=== PATIENT | female | born 1965 | race African-American/Black ===

== ENCOUNTER 2017-02-09 21:41 | Emergency (ER) | payer BC ==
[~2017-02-09] VITALS: Ht 160 cm; Wt 93.0 kg
[~2017-02-09 21:41] MED LIST: CIPROFLOXACN500 MG PO; FERREX 150150 MG PO; FOLIC ACID1 MG PO; GABAPENTIN100 MG PO; HYZAAR1 TA1 PO; LORTAB 7.5-3251 TAB PO; METFORMIN500 MG PO; ONDANSETRON4 MG PO; PRILOSEC40 MG PO
[2017-02-10 00:02] LABS: HEMATOCRIT 38.9 % (37.0-47.0); HEMOGLOBIN 12.5 g/dl (12.0-16.0); IMMATURE GRANULOCYTES 0.3 % (0.0-1.0); MEAN CELL VOLUME 88.4 fL CALC (80.0-100.0); MEAN CORPUSCULAR HGB 28.4 pG CALC (26.0-32.0); MEAN CORPUSCULAR HGB CONC 32.1 g/L CALC (32.0-36.0); NEUT# 3.73 thou/uL (2.00-7.15); RED BLOOD COUNT 4.4 mill/uL (4.20-5.60); RED CELL DISTRI WIDTH 14.5 % (11.5-15.5)
[2017-02-10 00:05] LABS: URINE BILIRUBIN - DIPSTICK NEGATIVE (NEGATIVE); URINE BLOOD DIPSTICK NEGATIVE (NEGATIVE); URINE CLARITY SLIGHT CLOUDY; URINE COLOR YELLOW; URINE GLUCOSE - DIPSTICK NEGATIVE (NEGATIVE); URINE KETONE TRACE mg/dL (NEGATIVE); URINE LEUK ESTERASE NEGATIVE (NEGATIVE); URINE PROTEIN - DIPSTICK NEGATIVE (NEG-TRACE)
[2017-02-10 00:08] LABS: URINE NITRITE - DIPSTICK POSITIVE (Negative)
[2017-02-10 00:13] LABS: URINE BACTERIA MANY hpf; URINE RBC 0-2 RBC/hpf (0-5); URINE SQUAMOUS EPITHELIAL CELL RARE EPI/hpf (0-FEW)
[2017-02-10 00:25] LABS: ALBUMIN 4.5 g/dL (3.2-5.0); ALKALINE PHOSPHATASE 126 u/l (38-126); AMYLASE 100 u/l (30-110); ANION GAP 14 (6-22 (CALC)); BILIRUBIN, TOTAL 0.7 mg/dL (0.0-1.4); BUN 8 mg/dL (7-17); BUN/CREATININE RATIO 10 (12-20 (CALC)); CALCIUM 9.2 mg/dL (8.4-10.2); CARBON DIOXIDE 25 mmol/l (22-30); CHLORIDE 101 mmol/l (95-108); CREATININE 0.8 mg/dL (0.5-1.0); GFR > 60 ML/MIN (>=60 (CALC)); GFR FOR AFR.AMER. > 60 ML/MIN (>=60 (CALC)); GLUCOSE 151 mg/dL (65-105); LIPASE 99 u/l (23-300); SGOT/AST 44 u/l (14-36); SGPT/ALT 30 u/l (9-52); SODIUM 137 mmol/l (137-146); TOTAL PROTEIN 8.1 g/dL (6.3-8.2)
[2017-02-10] MEDS ORDERED: CIPROFLOXACN500 MG PO (01:18)
[2017-02-10] MEDS ORDERED: ULTRAM50 MG PO (01:18)
[2017-02-10 02:21] VITALS: BP 125/70
== END 2017-02-10 02:15 | disposition home or self-care (01) | DRG 392 ==
LOC: ED 21:41
PROVIDERS: Emergency Medicine
DX: R10.32 Left lower quadrant pain (principal); N39.0 Urinary tract infection, site not specified; N83.201 Unspecified ovarian cyst, right side; B96.20 Unspecified Escherichia coli [E. coli] as the cause of diseases classified elsewhere
CPT/HCPCS: Q9967

== ENCOUNTER 2021-12-24 09:22 | Day surgery (SDC) | payer BC ==
[~2021-12-24] VITALS: Ht 160 cm; Wt 85.7 kg
[~2021-12-24 09:22] MED LIST changes: +ATORVASTATIN CA1 POW PO; +JARDIANCE25 MG PO; +OMEPRAZOLE DR40 MG PO; +ULTRAM50 MG PO; +ZESTRIL10 M1 PO
[2021-12-24 12:53] VITALS: BP 189/100
== END 2021-12-24 13:08 | disposition home or self-care (01) | DRG 951 ==
LOC: ENDO 09:22
PROVIDERS: ATTEND Surgery
PROC: 0DJD8ZZ Inspection of Lower Intestinal Tract, Via Natural or Artificial Opening Endoscopic (ICD-10-PCS; principal; 2021-12-24)
DX: Z12.11 Encounter for screening for malignant neoplasm of colon (principal); K57.30 Diverticulosis of large intestine without perforation or abscess without bleeding; K64.8 Other hemorrhoids; K64.4 Residual hemorrhoidal skin tags; I10 Essential (primary) hypertension; E11.9 Type 2 diabetes mellitus without complications; E78.5 Hyperlipidemia, unspecified; Z79.84 Long term (current) use of oral hypoglycemic drugs

== ENCOUNTER 2023-01-22 22:52 | Emergency (ER) | payer BC ==
[~2023-01-22] VITALS: Ht 160 cm; Wt 90.0 kg
[2023-01-22] MEDS ORDERED: NAPROXEN500 MG PO (23:26)
[2023-01-22] MEDS ORDERED: AMOXICILLIN500 MG PO (23:26)
[2023-01-22] MEDS ORDERED: ULTRAM50 MG PO (23:27)
[2023-01-22 23:33] VITALS: BP 189/108
== END 2023-01-22 23:45 | disposition home or self-care (01) | DRG 605 ==
LOC: ED 22:52
PROC: 0HDRXZZ Extraction of Toe Nail, External Approach (ICD-10-PCS; principal; 2023-01-22)
DX: S91.202A Unspecified open wound of left great toe with damage to nail, initial encounter (principal); W22.8XXA Striking against or struck by other objects, initial encounter